=== PATIENT | male | born 2000 | race Two or more races ===

== ENCOUNTER 2019-12-12 23:44 | Emergency (ER) | payer SELFPAY ==
[~2019-12-12] VITALS: Ht 170.2 cm; Wt 72.6 kg
[2019-12-12 23:54] VITALS: BP 164/102
--- NOTE | 2019-12-12 23:54 | NUR ---
ED Nurse Note: pt BIBA CO becoming scared after smoking methamphetamines. Pt VS elevated, ERMD aware. Pt states that he regularly uses methamphetamines since 2018 and expressed a desire to seek rehabilitation. Pt is homeless and states that he resides in an abandoned [place] on [place] but cannot recall the exact location. Pt aao x 4, ambulatory. Pt fearful, anxious, restless. ERMD at bedside
--- NOTE | 2019-12-12 23:59 | Emergency Room Report ---
History of Present Illness General Chief Complaint: Substance Abuse Source: Patient Present Illness HPI This is a 19-year-old male with no past medical history. He does have a history of substance abuse. He called 911 because he was feeling anxious and nervous after smoking crystal methamphetamine. Denies suicidal thoughts homicidal thought. Has been in rehab before. Denies any trauma. Denies any alcohol or other drug use. No hallucination or delusion. Allergies: Coded Allergies: No Known Allergies (Unverified , 12/12/19) COVID-19 Screening Contact w/high risk pt: No Recent Travel to affected area: No Experienced COVID-19 symptoms?: No Patient History Past Medical History: see triage record, old chart reviewed Past Surgical History: none Pertinent Family History: none Social History: Reports: smoking, drug use Immunizations: other Reviewed Nursing Documentation: PMH: Agreed; PSxH: Agreed Nursing Documentation-PMH Past Medical History: No Stated History Review of Systems Eye: Denies: eye pain, blurred vision ENT: Denies: ear pain, nose congestion, throat swelling Respiratory: Denies: cough, shortness of breath Cardiovascular: Denies: chest pain, palpitations Gastrointestinal: Denies: abdominal pain, diarrhea, nausea, vomiting Musculoskeletal: Denies: back pain, joint pain Skin: Denies: rash Psychiatric: Reports: anxiety Neurological: Denies: headache, numbness Endocrine: Denies: increased thirst, increased urine Hematologic/Lymphatic: Denies: easy bruising All Other Systems: negative except mentioned in HPI Physical Exam Vital Signs Date Time Temp Pulse Resp B/P (MAP) Pulse Ox O2 Delivery O2 Flow Rate FiO2 12/12/19 23:44 98.1 126 19 164/102 (122) 99 Room Air vitals with tachycardia and htn Sp02 EP Interpretation: reviewed, normal General Appearance: well appearing, no apparent distress, alert Head: normocephalic, atraumatic Eyes: bilateral eye PERRL, bilateral eye EOMI ENT: hearing grossly normal, normal pharynx Neck: full range of motion, supple, no meningismus Respiratory: chest non-tender, lungs clear, normal breath sounds Cardiovascular #1: regular rate, rhythm, no murmur Gastrointestinal: normal bowel sounds, non tender, no mass, no organomegaly, no bruit, non-distended Musculoskeletal: back normal, normal range of motion, gait/station normal Neurologic: alert, oriented Psychiatric: anxious - crying Medical Decision Making Diagnostic Impression: 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 No criteria for 5150. better after ativan. will dc home. This patient is a chronic risk of self injury due to poor impulse control, limited coping skills, and judgment intermittently impaired by intoxication. I believe that the available clinical evidence to suggest that these characteristics derived primarily from personality disorder and are likely very stable over time. Hospitalization would likely attenuate risk of self-harm only during penitentiary period, without lasting risk reduction. Serious self-harm , while possible, would likely be inadvertent, and because of impulsivity, and foreseeable. For these reasons, I do not believe hospitalization would provide meaningful reduction in risk of self-harm. Last Vital Signs Date Time Temp Pulse Resp B/P (MAP) Pulse Ox O2 Delivery O2 Flow Rate FiO2 12/12/19 23:44 98.1 126 19 164/102 (122) 99 Room Air Status: improved Disposition: HOME, SELF-CARE Condition: Stable Referrals: NOT CHOSEN IPA/,REFERRING (PCP) Patient Instructions: Substance Use Disorder Additional Instructions: Stop using drugs. Follow-up with rehab within a week. Return if worse. Kailash Sanders MD Dec 12, 2019 23:59
[2019-12-13] MEDS ORDERED: LORazepam Inj 2mg/ml 1ml IM ONE
--- NOTE | 2019-12-13 00:05 | NUR ---
ED Nurse Note: All medications administered, pt tolerated well no ss of distress noted. Pt resting comfortably in bed. will continue to monitor
--- NOTE | 2019-12-13 00:10 | NUR ---
ED Nurse Note: Food provided to pt. Pt tolerated well.
--- NOTE | 2019-12-13 00:25 | NUR ---
ED Nurse Note: pt resting comfortably in bed, VSS no ss of distress noted.
[2019-12-13 01:45] VITALS: BP 125/56
--- NOTE | 2019-12-13 02:30 | NUR ---
ED Nurse Note: pt resting comfortably in bed, VSS no ss of distress noted. will continue to monitor
[2019-12-13 03:55] VITALS: BP 117/65
--- NOTE | 2019-12-13 04:12 | NUR ---
ED Nurse Note: pt resting comfortably in bed, VSS no ss of distress noted. will continue to monitor
[2019-12-13 05:00] VITALS: BP 117/64
--- NOTE | 2019-12-13 05:00 | NUR ---
ER DISCHARGE NOTE: Patient is cleared to be discharged home (pt refused to disclose exact location of living) per ERMD, pt is aox4, on room air, with stable vital signs. pt was given dc instructions, pt was able to verbalize understanding, pt id band removed. pt is able to ambulate with steady gait. pt took all belongings. pt given food, adequate clothing, and numerous resource options.
== END 2019-12-13 05:00 | disposition home or self-care (01) ==
LOC: EDBD 23:44 → EMR 23:54
DX: F15.10 Other stimulant abuse, uncomplicated (principal); F15.980 Other stimulant use, unspecified with stimulant-induced anxiety disorder; F17.200 Nicotine dependence, unspecified, uncomplicated
CPT/HCPCS: 96372; 99283